=== PATIENT | female | born 1960 | race Caucasian/White ===

== ENCOUNTER 2016-05-08 11:47 | Day surgery (SDC) | payer OTHER ==
[~2016-05-08] VITALS: Ht 165.1 cm; Wt 110.1 kg
[2016-05-08 12:30] VITALS: Ht 165.1 cm; Wt 110.1 kg
[2016-05-08] MEDS ORDERED: hydrochlorothiazide (12:48)
[2016-05-08 12:52] VITALS: BP 125/70; PULSE 84; RESP 18
[2016-05-08] MEDS ORDERED: MIDAZOLAM 1 MG/ML 2 ML INJ ONE (12:53)
[2016-05-08] MEDS ORDERED: PROPOFOL 20 ML ONE (12:53)
[2016-05-08] MEDS ORDERED: FENTAnyl 50 MCG/ML VIAL ONE (12:53)
--- NOTE | 2016-05-08 14:05 | GILP ---
DATE OF PROCEDURE: 05/08/2016 PREOPERATIVE DIAGNOSIS: Screening colonoscopy. POSTOPERATIVE DIAGNOSIS: Polyp in sigmoid colon removed, 3 mm polyp by cold biopsy polypectomy. Fi xed left colon. Diverticulosis in the left sigmoid colon mostly. DESCRIPTION OF PROCEDURE: The patient was sedated by the anesthesiologist, Dr. Hummel. Then, very carefully advanced an Olympus video pediatric colonoscope carefully in the rectum and adv anced all the way to the cecum. Ileocecal valve, appendiceal opening identified. Cecum, ascending colon, descending colon, transverse colon unremarkable except sigmoid colon had diverticulosis and f ixation and at about the rectosigmoid junction area, a 3 mm polyp was found. This was photographed and biopsy with jumbo biopsy cold polypectomy was carried out and sent to histopathology. Rectum by retroflexion also was normal. Upon removal of scope, patient had no complications. Plan will be to await for biopsy report, follow up in 2 weeks and repeat colonoscopy in 3 to 5 year s. The patient will be advised a high fiber diet. Dictated By: BARBARA PACHECO Conf#: [id number] DID#: [id number] CC: ERIN WILLIS MD;*EndCC*
== END 2016-05-08 15:19 | disposition home or self-care (01) ==
LOC: GIL 11:47
PROVIDERS: ATTEND Internal Medicine
DX: Z12.11 Encounter for screening for malignant neoplasm of colon (principal); K63.5 Polyp of colon; K57.90 Diverticulosis of intestine, part unspecified, without perforation or abscess without bleeding; I10 Essential (primary) hypertension
CPT/HCPCS: 45380; 88305; J2250; J3010; Z7610